=== PATIENT | female | born 1990 | race Caucasian/White ===

== ENCOUNTER 2017-11-17 12:19 | Inpatient (IN) | payer BC ==
[2017-11-17] MEDS ORDERED: Sodium Chloride 0.9% 10 ML Syringe FLUSH PRN (12:33)
[2017-11-17] MEDS ORDERED: Oxytocin/Lactated Ringers 10 UNIT/1,000 ML BAG IV SCH ×2 (12:45)
[2017-11-17] MEDS: Lactated Ringers 1,000 ML IV SCH ×3 (13:20→19:14)
--- NOTE | 2017-11-17 13:26 | PCM.LDHP ---
L&D History of Present Illness - General Date of Service: 11/17/17 Admit Problem/Dx: Patient Status Order with Admit Dx/Problem 11/17/17 12:34 Patient Status [ADT] Routine Admission Diagnosis/Problem Admission Diagnosis/Problem Normal labor Source of Information: Patient History Limitations: Reports: No Limitations - History of Present Illness Introduction:: Sue is a 27-year-old 3 para 1011 white female was admitted to labor and delivery for medical induction of labor for elevated blood pressures. At home blood pressures every from 1:30 to 150 over 90s for the last 3 days. On evaluation today they are in the same range. Patient's cervix is dilated to 2+ centimeters/80% effaced/soft/-3/midposition. She has 3+ or 4 reflexes in upper and lower extremities. Mild edema is noted. Nonstress test today is reactive. The continuation of , its inherent risks, benefits and the alternative of inducing labor to deliver the baby in a patient with progressive gestational hypertension, good dating and a very ripe cervix are discussed in detail with the patient. She appears to understand and wishes to proceed with induction of labor. LOGISTICS SUPPORT history 3 para 1011. Patient at term delivery on 09/23/2013 at 40 weeks gestational age after 18 hours of labor. She delivered a 7 lbs. 8 oz. male named Varun via spontaneous vaginal delivery here at [facility]. Second was an ectopic on 07/01/2016 at 7 weeks gestation. Patient's last menstrual start on 02/26/2017, was definite. Cycles are every 28 days, using no control time conception. She had menarche at age 12. course. Patient was seen early in the course of the and had an ultrasound done at 7-3/7 weeks on 04/17/2017 which correlated well with her last menstrual period dating for an PERI of 12/03/2017. 2 other ultrasounds on 07/18 and 08/13/2017 were supportive of the initial ultrasound. Her course was relatively unremarkable until the last week. She declined genetic testing. She is planning on breast-feeding. Her [place] depression screening scar on 07/14/2017 was 0 on a scale 30. She is group B strep negative. She has a history of genital herpes in the remote past and has been on acyclovir 400 mg by mouth 3 times a day for the last 3 weeks. [place] testing was normal on 08/12/2017. She had hypertension with her last which was consistent with a gestational hypertension picture versus a preeclampsia picture is desiring epidural in labor. She is up-to-date regarding her T dap vaccination with a shot given on 09/09/2017. She is rubella immune. Patient seen on a regular basis during the course of her . Her weight gain was from 149.2 up to 179 pounds for a 30 pound weight gain. Fundal height growth has been appropriate. Laboratory testing and shows her blood to be B+ with negative antibody screen. Hemoglobin at first visit was 14.3 g/dL and platelets are 218,000. She is rubella immune. RPR is nonreactive. Urine culture was negative. Hepatitis B surface antigen and HIV assays were both negative. On a recent chlamydia assays both negative. [place] test on 08/12/2017 showed low risk for trisomy 21, 18, 13. Second trimester labs showed a hemoglobin of 13.4 g /dL and platelets 196,000. Her 1 hour GTT was 86. Platelet count on 11/13/2017 was 191,000 and hemoglobin was 14.5. She is the strep negative Allergies: None Medications: 1. Acyclovir 400 mg 1 by mouth 3 times a day prophylactically for history of genital herpes 2. vitamins daily 3. Probiotic capsule daily 4. Full gases 1 mg daily. 5. Fish oil DAILY 6. Colace 100 mg by mouth daily to twice a day when necessary for constipation Past medical history: 1. Vaginal delivery 1 2. Asthma 3. Infertility 4. Ectopic 07/01/2016 Surgical history: 1. Right partial salpingectomy for ectopic 07/01/2016. 2. [place] teeth extraction Family history: Breast cancer in maternal grandmother. Pancreatic cancer paternal grandmother and mother. Nephew with heart defect and heterotaxy 4 siblings to full siblings 1 brother age 32 alive and well 1 sister age 34 alive and well. A half-brother age 13 alive and well. Half-brother age 14 alive and well. Mother age 52 alive and well. Father age 56 alive and well. Maternal grandmother and maternal grandfather alive and well with the exception of maternal grandfather with history of melanoma. Paternal grandmother secondary to pancreatic cancer. Paternal grandfather alive and well. Maternal grandmother also with a history of breast cancer. 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 She is a college graduate. is [employer]. She does not use any significant loss of alcohol, drugs or tobacco Review of systems:In general patient is doing well. She has had some headaches over the weekend and some minimal swelling otherwise is not reporting any symptoms. Skin: Negative Cardiovascular: No chest pain or exercise intolerance. Respiratory: No shortness of breath or infectious symptoms Breasts: Changes associated with : Patient plans to breast-feed GI: Negative : Changes associated with . Musculoskeletal: Minimal edema noted otherwise negative. Neurological: Negative Physical exam: Weight is 179 with pregravid weight 149. Her blood pressure is 142/92 been ranging as described above. Her height is 5 feet 6 inches and pregravid weight was 149.2. Pregravid body mass index was 24 In general patient is well-developed, well-nourished, pleasant female of stated age distress. Skin is warm and dry without lesions. HEENT, neck and back within normal limits. Cardiovascular exam shows regular rate and rhythm without murmurs. Lungs are clear with good breath sounds in all jett. Breast exam is deferred him first visit and found to be normal. Abdomen is protuberant with fundal height of 38 cm. Baby in vertex presentation by Pelon maneuvers. Cervix is 2+ meters dilated, 80% effaced, soft, -3 station, midposition. Extremities and neurological exam grossly within normal limits. Minimal edema is noted in bilateral lower extremities. Deep tendon reflexes are minimally increased at 3+ over 4 in upper and lower extremities. - Related Data Allergies/Adverse Reactions: Allergies Allergy/AdvReac Type Severity Reaction Status Date / Time No Known Allergies Allergy Verified 07/01/16 16:06 Home Medications: Home Meds Acetaminophen/oxyCODONE [Percocet 325-5 MG] 2 tab PO Q4H PRN #20 tablet [Rx] Folic Acid 1 mg PO DAILY 07/01/16 [History] Ibuprofen 600 mg PO Q4HR PRN #30 tablet 07/01/16 [Rx] L.acidoph,Paracasei, B.lactis [Probiotic] 1 each PO DAILY 08/01/16 [History] Vits #93/Iron Fum/FA [ Formula Tablet] 1 each PO DAILY [History] Social & Family History - Family History Oncologic: Reports: Breast Other Oncologic Family History: breast cancer -mat grandmother. melanoma-mother , mat grandfather - Tobacco Use Smoking Status *Q: Never Smoker Second Hand Smoke Exposure: No - Alcohol Use Days Per Week of Alcohol Use: 2 Number of Drinks Per Day: 1 Total Drinks Per Week: 2 - Recreational Drug Use Recreational Drug Use: No H&P Review of Systems - Review of Systems: Review Of Systems: See Below L&D Exam - Exam Exam: See Below - Vital Signs Weight: 82.1 kg - Patient Data Lab Results Last 24 hrs: Laboratory Results - last 24 hr 11/17/17 Range/Units 12:55 WBC 11.56 H (3.98-10.04) K/mm3 RBC 4.47 (3.98-5.22) M/mm3 Hgb 13.7 (11.2-15.7) gm/L Hct 39.3 (34.1-44.9) % MCV 87.9 (79.4-94.8) fl MCH 30.6 (25.6-32.2) pg MCHC 34.9 (32.2-35.5) g/dl RDW Std Deviation 40.1 (36.4-46.3) fL Plt Count 162 L (182-369) K/mm3 MPV 9.8 (9.4-12.3) fl Result Diagrams: 11/17/17 12:55 Problem List Initiated/Reviewed/Updated: Yes Orders Last 24hrs: Active Orders 24 hr Category Date Time Status Patient Status [ADT] Routine ADT 11/17/17 12:34 Active Activity as Tolerated [RC] PFP Care 11/17/17 12:33 Active Communication Order [RC] ASDIRECTED Care 11/17/17 12:33 Active Heart Tones [RC] ASDIRECTED Care 11/17/17 12:34 Active Notify Provider [RC] PFP Care 11/17/17 12:33 Active Notify Provider [RC] PRN Care 11/17/17 12:33 Active Peripheral IV Care [RC] . DIRECTED Care 11/17/17 12:34 Active Vital Signs [RC] PER UNIT ROUTINE Care 12/18/17 12:33 Active Clear Liquid Diet [DIET] Diet 11/17/17 Lunch Active Lactated Ringers [Ringers, Lactated] 1,000 ml Med 11/17/17 12:45 Active IV ASDIRECTED Oxytocin/Lactated Ringers [Pitocin in LR 10 Units/1,000 Med 11/17/17 12:45 Active ML] 10 unit in 1,000 ml IV .CONTINUOUS Oxytocin/Lactated Ringers [Pitocin in LR 10 Units/1,000 Med 11/17/17 12:45 Active ML] 10 unit in 1,000 ml IV TITRATE Sodium Chloride 0.9% [Saline Flush] Med 11/17/17 12:33 Active 10 ml FLUSH ASDIRECTED PRN Electronic Heart Tones Ext w TOCO [WOMSER] Oth 11/17/17 12:33 Ordered Routine Electronic Heart Tones Internal [WOMSER] Per Unit Oth 11/17/17 12:33 Ordered Routine Peripheral IV Insertion Adult [OM.PC] Routine Oth 11/17/17 12:33 Ordered Resuscitation Status Routine Resus Stat 11/17/17 12:33 Ordered Medication Orders Lactated Ringer's (Ringers, Lactated) 1,000 mls @ 100 mls/hr IV ASDIRECTED DIANA Oxytocin/Lactated Ringer's (Pitocin In Lr 10 Units/1,000 Ml) 10 unit in 1,000 mls @ 12 mls/hr IV TITRATE DIANA; 2 MUNITS/MIN PRN Reason: Protocol Oxytocin/Lactated Ringer's (Pitocin In Lr 10 Units/1,000 Ml) 10 unit in 1,000 mls @ 500 mls/hr IV .CONTINUOUS DIANA Sodium Chloride (Saline Flush) 10 ml FLUSH ASDIRECTED PRN PRN Reason: Keep Vein Open Assessment/Plan Comment:: Assessment: 1. 37-5/7 week intrauterine , progressive hypertension most probably consistent with progressive gestational hypertension. 2. Patient plans to breast-feed. 3. Rubella immune. 4. Patient is okay with epidural 5. T dap is up-to-date Plan: 1. Medical induction of labor with Pitocin/artificial rupture membranes. 2. Epidural when necessary 3. Monitor blood pressures closely in labor. 4. Encouraged nursing
--- NOTE | 2017-11-17 14:34 | PCM.PREANE ---
Preanesthetic Assessment - Procedure Proposed Procedure: ANUJ - Anesthesia/Transfusion/Family Hx Anesthesia History: Prior Anesthesia Without Reaction Family History of Anesthesia Reaction: No Transfusion History: No Prior Transfusion(s) Type of Transfusion Reactions: Reports: Unknown - Review of Systems General: No Symptoms Pulmonary: No Symptoms Cardiovascular: No Symptoms Gastrointestinal: No Symptoms Neurological: No Symptoms Other: Reports: None - Physical Assessment NPO Status Date: 11/17/17 NPO Status Time: 14:00 O2 Sat by Pulse Oximetry: 99 Respiratory Rate: 16 Vital Signs: Last Vital Signs Temp 37.3 C 11/17/17 12:33 Pulse 91 11/17/17 12:33 Resp 16 11/17/17 12:33 BP 132/90 11/17/17 12:33 Pulse Ox 99 11/17/17 12:33 Height: 1.65 m Weight: 82.1 kg ASA Class: 2 Mental Status: Alert & Oriented x3 Airway Class: Mallampati = 2 Dentition: Reports: Normal Dentition Thyro-Mental Finger Breadths: 3 Mouth Opening Finger Breadths: 3 ROM/Head Extension: Full Lungs: Clear to Auscultation, Normal Respiratory Effort Cardiovascular: Regular Rate, Regular Rhythm - Lab Values: Laboratory Last Values WBC 11.56 K/mm3 (3.98-10.04) H 11/17/17 12:55 RBC 4.47 M/mm3 (3.98-5.22) 11/17/17 12:55 Hgb 13.7 gm/L (11.2-15.7) 11/17/17 12:55 Hct 39.3 % (34.1-44.9) 11/17/17 12:55 MCV 87.9 fl (79.4-94.8) 11/17/17 12:55 MCH 30.6 pg (25.6-32.2) 11/17/17 12:55 MCHC 34.9 g/dl (32.2-35.5) 11/17/17 12:55 RDW Std Deviation 40.1 fL (36.4-46.3) 11/17/17 12:55 Plt Count 162 K/mm3 (182-369) L 11/17/17 12:55 MPV 9.8 fl (9.4-12.3) 11/17/17 12:55 - Allergies Allergies/Adverse Reactions: Allergies Allergy/AdvReac Type Severity Reaction Status Date / Time No Known Allergies Allergy Verified 07/01/16 16:06 - Blood Blood Available: No Product(s) Available: None - Anesthesia Plan Pre-Op Medication Ordered: None - Acknowledgements Anesthesia Type Planned: Epidural Pt an Appropriate Candidate for the Planned Anesthesia: Yes Alternatives and Risks of Anesthesia Discussed w Pt/Guardian: Yes Pt/Guardian Understands and Agrees with Anesthesia Plan: Yes PreAnesthesia Questionnaire Respiratory History: Reports: Other (See Below) Other Respiratory History: asthma as a child [employer] History: Reports: Ectopic Other OB/BYN History: laparoscopy with rt salpingectomy - Infectious Disease History Infectious Disease History: Reports: Chicken Pox, Herpes - Past Surgical History Head Surgeries/Procedures: Reports: None - SUBSTANCE USE Smoking Status *Q: Never Smoker Tobacco Use Within Last Twelve Months: No Second Hand Smoke Exposure: No Days Per Week of Alcohol Use: 2 Number of Drinks Per Day: 1 Total Drinks Per Week: 2 Recreational Drug Use History: No - HOME MEDS Home Medications: Home Meds Acetaminophen/oxyCODONE [Percocet 325-5 MG] 2 tab PO Q4H PRN #20 tablet [Rx] Folic Acid 1 mg PO DAILY 07/01/16 [History] Ibuprofen 600 mg PO Q4HR PRN #30 tablet 07/01/16 [Rx] L.acidoph,Paracasei, B.lactis [Probiotic] 1 each PO DAILY 07/01/16 [History] Vits #93/Iron Fum/FA [ Formula Tablet] 1 each PO DAILY [History] - CURRENT (IN HOUSE) MEDS Current Meds: Current Medications Lactated Ringer's (Ringers, Lactated) 1,000 mls @ 100 mls/hr IV ASDIRECTED DIANA Last Admin: 11/17/17 13:20 Dose: 100 mls/hr Oxytocin/Lactated Ringer's (Pitocin In Lr 10 Units/1,000 Ml) 10 unit in 1,000 mls @ 12 mls/hr IV TITRATE DIANA; 2 MUNITS/MIN PRN Reason: Protocol Last Titration: 11/17/17 14:13 Dose: 6 munits/min, 36 mls/hr Oxytocin/Lactated Ringer's (Pitocin In Lr 10 Units/1,000 Ml) 10 unit in 1,000 mls @ 500 mls/hr IV .CONTINUOUS DIANA Sodium Chloride (Saline Flush) 10 ml FLUSH ASDIRECTED PRN PRN Reason: Keep Vein Open
[2017-11-17] MEDS ORDERED: fentaNYL 100 MCG/2 ML SDV EPIDUR PRN (15:21)
[2017-11-17] MEDS ORDERED: ePHEDrine 50 MG/ML SDV IVPUSH PRN (15:21)
[2017-11-17] MEDS ORDERED: diphenhydrAMINE 50 MG/ML SDV IVPUSH PRN (15:21)
[2017-11-17] MEDS ORDERED: Ondansetron 4 MG/2 ML SDV IVPUSH PRN (15:21)
[2017-11-17] MEDS ORDERED: Bupivacaine/fentaNYL/NS 100 ML Bag EPIDUR SCH (15:30)
--- NOTE | 2017-11-17 21:31 | PCM.SN ---
- Free Text/Narrative Note: Delivery note: Sue is a 27-year-old 3 now para 2012 white female who was admitted midday on 11/17/2017 at 37-5/7 weeks gestational age with a diagnosis of gestational hypertension. Blood pressures over the last 5 days indicated a slight increase to a point where they were elevated. Blood pressures averaged in the 140-150/90-100 range. Degenerative reflexes were +3 over 4 bilaterally in upper and lower extremities. Preeclampsia labs however done last week were within normal limits and not repeated at this time. Decision was made to proceed with induction of labor as patient's cervix was relatively ripe. This was accomplished with Pitocin initially and then artificial rupture membranes. She made steady progress to complete cervical dilation by approximately 2030 hrs. on 11/17/2017. Patient pushed 2 contractions and delivered a viable, sagastume, 3570 g (7 pound 13.9 ounce) female infant with Apgars of 8 and 9, a length of 21.0 inches in a left occiput anterior position at 2106 hrs. on 2016. The baby's nose and mouth were bulb suctioned and a was placed on mom's abdomen. The cord was clamped 2 and was then cut by the father. Cord bloods obtained. The umbilical cord was noted to have 3 vessels. Perineum was found to be intact and no stitches were necessary. Pitocin was started IV in a continuous fashion increase uterine tone lessen the likelihood of uterine bleeding. The placenta delivered in [place] presentation, appeared intact and complete. It was discarded per patient desire. Patient plans to breast-feed. Estimated blood loss was 100 mL. Condition: Good
[2017-11-17] MEDS ORDERED: Methylergonovine 0.2 MG/1 ML Amp ONE (22:00)
[2017-11-17] MEDS ORDERED: Acetaminophen 325 MG Tab PO PRN (23:27)
[2017-11-17] MEDS ORDERED: Docusate Sodium 100 MG Cap PO PRN (23:27)
[2017-11-17] MEDS ORDERED: Benzocaine/Menthol 20%-0.5% Spray 56 GM Canister TOP PRN (23:27)
[2017-11-17] MEDS ORDERED: Lanolin 100% Cream 7 GM Tube TOP PRN (23:27)
[2017-11-17] MEDS ORDERED: Witch Hazel Medicated Pads 100/Jar TOP PRN (23:27)
[2017-11-18] MEDS: Ibuprofen 600 MG Tab PO PRN ×5 (00:52→23:50)
[2017-11-18] MEDS: Methylergonovine 0.2 MG/1 ML Amp IM ONE ×2 (02:18→22:33)
--- NOTE | 2017-11-18 16:38 | PCM48HPAN ---
Post Anesthesia Note - EVALUATION WITHIN 48HRS OF ANESTHETIC Vital Signs in Normal Range: Yes Patient Participated in Evaluation: Yes Respiratory Function Stable: Yes Airway Patent: Yes Cardiovascular Function Stable: Yes Hydration Status Stable: Yes Pain Control Satisfactory: Yes Nausea and Vomiting Control Satisfactory: Yes Mental Status Recovered: Yes
[2017-11-18] MEDS: Prenatal Multivitamin with Calcium/Folic Acid/Iron Tab PO SCH (22:33)
[2017-11-19] MEDS: Ibuprofen 600 MG Tab PO PRN (05:12)
[2017-11-19] MEDS ORDERED: FLU Vacc TS 2017-18 (65yr UP)/PF 180 MCG/0.5 ML Syringe IM ONE (10:24)
[2017-11-19] MEDS ORDERED: FLU Vacc QS 2017-18 (6mos UP)/PF 60 MCG/0.5 ML Syringe IM ONE (10:30)
[2017-11-19 13:12] VITALS: BP 128/80
[2017-11-19] MEDS: Prenatal Multivitamin with Calcium/Folic Acid/Iron Tab PO SCH (13:15)
== END 2017-11-19 10:30 | disposition home or self-care (01) | DRG 560 ==
LOC: JD.OB 12:19 → INTOOBSV 12:19 → JD.OB 21:06 → OBSVTOIN 21:06
PROVIDERS: ADMIT Obstetrics & Gynecology; ATTEND Obstetrics & Gynecology
PROC: 10E0XZZ Delivery of Products of Conception, External Approach (ICD-10-PCS; principal; 2017-11-17)
PROC: 3E0P3VZ Introduction of Hormone into Female Reproductive, Percutaneous Approach (ICD-10-PCS; 2017-11-17)
PROC: 10907ZC Drainage of Amniotic Fluid, Therapeutic from Products of Conception, Via Natural or Artificial Opening (ICD-10-PCS; 2017-11-17)
PROC: 00HU33Z Insertion of Infusion Device into Spinal Canal, Percutaneous Approach (ICD-10-PCS; 2017-11-17)
PROC: 3E0R3BZ Introduction of Anesthetic Agent into Spinal Canal, Percutaneous Approach (ICD-10-PCS; 2017-11-17)
DX: O13.4 Gestational [pregnancy-induced] hypertension without significant proteinuria, complicating childbirth (principal); Z3A.38 38 weeks gestation of pregnancy; Z37.0 Single live birth; Z34.93 Encounter for supervision of normal pregnancy, unspecified, third trimester
CPT/HCPCS: 01967; 36415; 51702; 59409; 81003; 85027; 90471; 90686; A9270-GY; J2210; J2405; J2590; J3010; J7120

== ENCOUNTER 2020-11-22 01:58 | Inpatient (IN) | payer OTHER ==
[2020-11-22] MEDS ORDERED: Sodium Chloride 0.9% 10 ML Syringe FLUSH PRN (14:02)
[2020-11-22] MEDS ORDERED: Nalbuphine 10 MG/1 ML Vial IVPUSH PRN (14:02)
[2020-11-22] MEDS ORDERED: Ondansetron 4 MG/2 ML SDV IVPUSH PRN (14:02)
[2020-11-22] MEDS ORDERED: Oxytocin/Lactated Ringers 10 UNIT/1,000 ML BAG IV SCH ×2 (14:15→14:45)
[2020-11-22] MEDS: Lactated Ringers 1,000 ML IV SCH ×3 (14:45→21:49)
--- NOTE | 2020-11-22 16:26 | PCM.LDHP ---
L&D History of Present Illness - General Date of Service: 11/22/20 Admit Problem/Dx: Patient Status Order with Admit Dx/Problem 11/22/20 14:02 Patient Status [ADT] Routine Admission Diagnosis/Problem Admission Diagnosis/Problem 11/22/20 16:14 Sue is a 29-year-old 4 para 2-0-1-2 white female admitted on the afternoon of 11/22/2020 at 36-2/7 weeks gestational age with an PERI of 12/18/2020 for elevated blood pressures in and feeling unwell. Source of Information: Patient History Limitations: Reports: No Limitations - History of Present Illness Introduction:: Sue is a 29-year-old 4 para 2-0-1-2 white female admitted on the afternoon of 11/22/2020 at 36-2/7 weeks gestational age with an PERI of 12/18/2020 for elevated blood pressures in and feeling unwell. She was seen in clinic and was found to have blood pressure 157/95. She reports her blood pressures at home have been running in the 160s systolic over 100-110 diastolic. She feels unwell and that she has had headaches. She denies any vision problems abdominal pain. She reports good activity. Patient was recently seen in clinic on 11/20/2020 at which time blood pressures were borderline elevated. She was feeling less than well at that time. Her preeclampsia laboratory testing was normal at that time. She is admitted at this time for an medical induction of labor. RN OFFICE history: 4 para 2-0-1-2. Patient has had 1 ectopic . She has had 2 vaginal deliveries. She had menarche at approximately age [age]. LMP 03/13/2020. Her due date of 12/18/2020 is based upon her last menstrual period and supported by multiple ultrasounds during the course of the . Her past obstetric history includes the followin. Male infant born 09/23/2015 at 40 weeks gestational age after 18 hours of labor7 pounds 8 [facility]NS[facility]. 2. Ectopic pregnancy7 weeks gestation on 07/01/2016-surgical treatment. 3. Female infant born 11/17/2017 at 37-5/7 weeks gestational age after 8 hours of laborNSVDepiduralSt. [facility] in [place]'s name is Isabella Zaidi. course: Patient was initially seen with this at 9 weeks and 3 days on 05/18/2020. She was seen on a regular basis throughout the . Patient's blood pressures became borderline and then elevated at approximately 33 to 34 weeks gestational age. She has been monitored with home blood pressures from that time forward. She has not been on any medications. Repeated laboratory testing has indicated normal liver function studies and no laboratory indication of preeclampsia. Her fundal height growth has been appropriate in . Her weight gain has been from 152.4 pounds to 179 pounds for a 26.6 pound increase. Patient has received her flu shot on 09/25/2020. Her Tdap was given on 10/03/2020. She is rubella immune. She had her hepatitis B immunization in 2000. Laboratory testing in shows blood to be be positive with a negative antibody screen. Her hemoglobin at first visit was 13.9 g/dL. Platelets are 225,000. She is rubella immune. RPR is nonreactive. Urine culture was negative. Hepatitis B surface antigen and HIV assays were both negative. Chlamydia and gonorrhea tests were both negative. Second trimester labs showed a hemoglobin of 13.4 g/dL and platelets at 192,000. Her 1 hour GTT was 94. RPR done on 09/22/2020 was negative. EPDS score on 08/08/2020 is 1/30. She has a history of genital herpes and has been on acyclovir 400 mg p.o. 3 times daily. She has had no outbreaks during the course of the . She plans to breast-feed. She would like an epidural in labor and delivery. She has been on a baby aspirin 81 mg p.o. daily since before 16 weeks gestation. Group B strep screen is negative. Allergies: None Medications: 1. Acyclovir 400 mg p.o. 3 times daily 2. Aspirin 81 mg daily 3. Probiotic caps daily 4. vitamins daily Past medical history: 1. Anxiety history. 2. History of melanoma. 3. History of asthma. 4. Ectopic with right partial salpingectomy 07/01/2016 5. Hypertension with first 2 pregnancies 6. Infertility resulting in Clomid therapy for her third . Past surgical history: 1. Right partial salpingectomy for ectopic 07/01/2016 Family history: 4 siblings2 full siblings, 1 brother alive and well. One sister age 34 alive and well. Half brother age 13 alive and well. Half brother age 14 alive and well. Mother age 52 alive and well. Father age 56 alive and well. Maternal grandmother and maternal grandfather alive and well with the exception that maternal grandfather has history of melanoma. Paternal grandmother secondary to pancreatic cancer. Paternal grandfather secondary to old age.. Maternal grandmother also has a history of breast cancer. There is no family history of bleeding or blood clotting disorders, anesthesia related issues or related problems. Social history: Patient is . is Mati Huynh. 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 They live in [place]. She does not use any significant also alcohol, drugs or tobacco. Review of systems: In general patient patient is generally feeling unwell. She has headaches. She has several nonspecific complaints related to her blood pressure. She does report good activity. Skin: Negative Lungs: No infectious symptoms or shortness of breath Cardiovascular: No chest pain or exercise intolerance Breasts: No lumps, changes in size, pain, dimpling, discharge or axillary or supraclavicular concerns. GI: Negative : Body habitus changes associated with . Musculoskeletal: Negative Neurological: Negative Physical exam: In general the patient is well-developed, well-nourished, pleasant female of stated age in mildmoderate distress. Clinic on the afternoon of admission blood pressure is 157/95. Weight was 179 with a pregravid weight of 152.4. Pregravid body mass index is 25 height is 5 feet 5. heart rate was 130 bpm. Skin is warm dry without lesions. HEENT, neck and back within normal limits. Lungs are clear with good breath sounds in all lung jett. Cardiovascular exam shows regular and rhythm without murmurs. Breast exam deferred having been done at first visit found to be normal. Patient does plan to breast-feed. Abdomen is gravid with fundal height of 36 cm. Baby in vertex presentation.. Genital digital exam shows cervix to be 2 cm, 50% effaced, soft, -3 station, mid position, cephalic presentation.. Extremities show no evidence of significant edema. Neurological exam shows deep tendon reflexes in bilateral lower extremities be 3+/4. DTRs are 2+/4 bilaterally in upper extremities. - Related Data Allergies/Adverse Reactions: Allergies Allergy/AdvReac Type Severity Reaction Status Date / Time No Known Allergies Allergy Verified 11/22/20 14:37 Home Medications: Home Meds Vit with Ca/FA/Iron [ Plus Iron] 1 each PO DAILY tablet 11/01 [Rx] Acyclovir 400 mg PO 11/22/20 [History] Aspirin 81 mg PO 11/22/20 [History] Docusate Sodium [Colace] 11/22/20 [History] L.acidoph,Paracasei, B.lactis [Probiotic] 1 each PO 11/22/20 [History] Past Medical History Cardiovascular History: Reports: Other (See Below) Other Cardiovascular History: gestational hypertension Respiratory History: Reports: Other (See Below) Other Respiratory History: asthma as a child 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 abnormal pap. - Infectious Disease History Infectious Disease History: Reports: Chicken Pox, Herpes - Past Surgical History HEENT Surgical History: Reports: Oral Surgery Social & Family History - Family History Cardiac: Reports: Other (See Below) Other Cardiac Family History: nephew wit heterotaxy Respiratory: Reports: Sleep Apnea Other Respiratory Family Hisory: father Oncologic: Reports: Breast Other Oncologic Family History: breast cancer -mat grandmother. melanoma- mother, mat grandfather - Tobacco Use Tobacco Use Status *Q: Never Tobacco User - Recreational Drug Use Recreational Drug Use: No H&P Review of Systems - Review of Systems: Review Of Systems: See Below L&D Exam - Exam Exam: See Below - Vital Signs Vital Signs: Last Vital Signs Temp 36.7 C 11/22/20 14:02 Pulse 85 11/22/20 14:02 Resp 16 11/22/20 14:02 BP 136/100 H 11/22/20 14:02 Pulse Ox Weight: 82.508 kg - Patient Data Lab Results Last 24 hrs: Laboratory Results - last 24 hr 11/22/20 11/22/20 11/22/20 Range/Units 14:10 14:10 14:15 WBC (3.98-10.04) K/mm3 RBC (3.98-5.22) M/mm3 Hgb (11.2-15.7) gm/dl Hct (34.1-44.9) % MCV (79.4-94.8) fl MCH (25.6-32.2) pg MCHC (32.2-35.5) g/dl RDW Std Deviation (36.4-46.3) fL Plt Count (182-369) K/mm3 MPV (9.4-12.3) fl Neut % (Auto) (34.0-71.1) % Lymph % (Auto) (19.3-51.7) % [place] % (Auto) (4.7-12.5) % Eos % (Auto) (0.7-5.8) Baso % (Auto) (0.1-1.2) % Neut # (Auto) (1.56-6.13) K/mm3 Lymph # (Auto) (1.18-3.74) K/mm3 [place] # (Auto) (0.24-0.36) K/mm3 Eos # (Auto) (0.04-0.36) K/mm3 Baso # (Auto) (0.01-0.08) K/mm3 BUN (7-18) mg/dL Creatinine (0.55-1.02) mg/dL Est Cr Clr Drug Dosing mL/min Estimated GFR (MDRD) (>60) mL/min Uric Acid (2.6-6.0) mg/dL AST (15-37) U/L ALT (14-59) U/L Lactate Dehydrogenase (81-234) U/L Urine Color Yellow (Yellow) Urine Appearance Clear (Clear) Urine pH 6.0 (5.0-8.0) Ur Specific [place] 1.020 (1.005-1.030) Urine Protein Negative (Negative) Urine Glucose (UA) Negative (Negative) Urine Ketones Negative (Negative) Urine Occult Blood Negative (Negative) Urine Nitrite Negative (Negative) Urine Bilirubin Negative (Negative) Urine Urobilinogen 0.2 (0.2-1.0) Ur Leukocyte Esterase Trace H (Negative) Urine RBC 0-5 (0-5) /hpf Urine WBC 5-10 H (0-5) /hpf Ur Squamous Epith Cells 0-5 (0-5) /hpf Urine Bacteria Few (FEW) /hpf Urine Mucus Few (FEW) /hpf Ur Random Creatinine 61.6 (30.0-125.0) mg/dL U Random Total Protein 7.9 (0.0-11.8) mg/dL Protein/Creatinin Ratio 128.2 (0-149) mg/g SARS-CoV-2 RNA (TONY) Negative (NEGATIVE) 11/22/20 11/22/20 Range/Units 14:27 14:27 WBC 11.02 H (3.98-10.04) K/mm3 RBC 4.84 (3.98-5.22) M/mm3 Hgb 14.7 (11.2-15.7) gm/dl Hct 42.6 (34.1-44.9) % MCV 88.0 (79.4-94.8) fl MCH 30.4 (25.6-32.2) pg MCHC 34.5 (32.2-35.5) g/dl RDW Std Deviation 39.8 (36.4-46.3) fL Plt Count 192 (182-369) K/mm3 MPV 10.6 (9.4-12.3) fl Neut % (Auto) 69.8 (34.0-71.1) % Lymph % (Auto) 22.9 (19.3-51.7) % [place] % (Auto) 6.1 (4.7-12.5) % Eos % (Auto) 0.8 (0.7-5.8) Baso % (Auto) 0.2 (0.1-1.2) % Neut # (Auto) 7.70 H (1.56-6.13) K/mm3 Lymph # (Auto) 2.52 (1.18-3.74) K/mm3 [place] # (Auto) 0.67 H (0.24-0.36) K/mm3 Eos # (Auto) 0.09 (0.04-0.36) K/mm3 Baso # (Auto) 0.02 (0.01-0.08) K/mm3 BUN 9 (7-18) mg/dL Creatinine 0.7 (0.55-1.02) mg/dL Est Cr Clr Drug Dosing 103.82 mL/min Estimated GFR (MDRD) > 60 (>60) mL/min Uric Acid 3.8 (2.6-6.0) mg/dL AST 20 (15-37) U/L ALT 18 (14-59) U/L Lactate Dehydrogenase 190 (81-234) U/L Urine Color (Yellow) Urine Appearance (Clear) Urine pH (5.0-8.0) Ur Specific [place] (1.005-1.030) Urine Protein (Negative) Urine Glucose (UA) (Negative) Urine Ketones (Negative) Urine Occult Blood (Negative) Urine Nitrite (Negative) Urine Bilirubin (Negative) Urine Urobilinogen (0.2-1.0) Ur Leukocyte Esterase (Negative) Urine RBC (0-5) /hpf Urine WBC (0-5) /hpf Ur Squamous Epith Cells (0-5) /hpf Urine Bacteria (FEW) /hpf Urine Mucus (FEW) /hpf Ur Random Creatinine (30.0-125.0) mg/dL U Random Total Protein (0.0-11.8) mg/dL Protein/Creatinin Ratio (0-149) mg/g SARS-CoV-2 RNA (TONY) (NEGATIVE) Result Diagrams: 11/22/20 14:27 11/22/20 14:27 Problem List Initiated/Reviewed/Updated: Yes Orders Last 24hrs: Active Orders 24 hr Category Date Time Status Patient Status [ADT] Routine ADT 11/22/20 14:02 Active Activity as Tolerated [RC] PFP Care 11/22/20 14:02 Active Communication Order [RC] ASDIRECTED Care 11/22/20 14:02 Active Heart Tones [RC] ASDIRECTED Care 11/22/20 14:02 Active Non Stress Test [RC] PER UNIT ROUTINE Care 11/22/20 14:02 Active Notify Provider [RC] PFP Care 11/22/20 14:02 Active Notify Provider [RC] PRN Care 11/22/20 14:02 Active Peripheral IV Care [RC] . DIRECTED Care 11/22/20 14:02 Active Vital Signs [RC] PER UNIT ROUTINE Care 11/22/20 14:02 Active Regular Diet [DIET] Diet 11/22/20 Dinner Active BLOOD BANK HOLD SPECIMEN [BBK] Stat Lab 11/22/20 14:27 Received RAPID PLASMA REAGIN,RPR [CHEM] Routine Lab 11/22/20 14:27 Received Lactated Ringers [Ringers, Lactated] 1,000 ml Med 11/22/20 14:15 Active IV ASDIRECTED Nalbuphine [Nubain] Med 11/22/20 14:02 Active 10 mg IVPUSH Q2H PRN Ondansetron [Zofran] Med 11/22/20 14:02 Active 4 mg IVPUSH Q4H PRN Oxytocin/Lactated Ringers [Pitocin in LR 10 Units/1,000 Med 11/22/20 14:15 Active ML] 10 unit in 1,000 ml IV .CONTINUOUS Oxytocin/Lactated Ringers [Pitocin in LR 10 Units/1,000 Med 11/22/20 14:45 Active ML] 10 unit in 1,000 ml IV TITRATE Sodium Chloride 0.9% [Saline Flush] Med 11/22/20 14:02 Active 10 ml FLUSH ASDIRECTED PRN Electronic Heart Tones Ext w TOCO [WOMSER] Oth 11/22/20 14:02 Ordered Routine Electronic Heart Tones Internal [WOMSER] Per Unit Oth 11/22/20 14:02 Ordered Routine PIH Panel [OM.PC] Stat Ot 11/22/20 14:02 Ordered Peripheral IV Insertion Adult [OM.PC] Routine Oth 11/22/20 14:02 Ordered Resuscitation Status Routine Resus Stat 11/22/20 14:02 Ordered Medication Orders Oxytocin/Lactated Ringer's (Pitocin In Lr 10 Units/1,000 Ml) 10 unit in 1,000 mls @ 500 mls/hr IV .CONTINUOUS DIANA Lactated Ringer's (Ringers, Lactated) 1,000 mls @ 100 mls/hr IV ASDIRECTED DIANA Last Admin: 11/22/20 14:45 Dose: 100 mls/hr Documented by: EUSEBIO Oxytocin/Lactated Ringer's (Pitocin In Lr 10 Units/1,000 Ml) 10 unit in 1,000 mls @ 12 mls/hr IV TITRATE DIANA; Protocol Last Titration: 11/22/20 15:35 Dose: 4 munits/min, 24 mls/hr Documented by: Admin: 11/22/20 14:46 Dose: 2 munits/min, 12 mls/hr Documented by: EUSEBIO Nalbuphine HCl (Nubain) 10 mg IVPUSH Q2H PRN PRN Reason: Pain Ondansetron HCl (Zofran) 4 mg IVPUSH Q4H PRN PRN Reason: Nausea/Vomiting Sodium Chloride (Saline Flush) 10 ml FLUSH ASDIRECTED PRN PRN Reason: Keep Vein Open Assessment/Plan Comment:: 1. Sue is a 29-year-old 4 para 2-0-1-2 white female admitted on the afternoon of 11/22/2020 at 36-2/7 weeks gestational age with an PERI of 12/18/2020 for elevated blood pressures in and feeling unwell. 2. History of related hypertension in first 2 pregnancies 3. Patient desires epidural in labor 4. Patient plans to breast-feed. 5. RPR is nonreactive, rubella titer shows immunity, patient has received her flu shot and her Tdap immunization Plan: 1. Admit for medical induction of labor for diagnosis of progressive hypertension in . Will proceed with Pitocin induction with AROM when possible. The process, induction discussed in detail with patient. She appears understand and wishes to proceed 2. Preeclampsia labs upon admission 3. Near continuous monitoring of heart tones 4. Routine labor care. Will monitor and initiate magnesium sulfate therapy if indicated. Also will treat with antihypertensives if indicated.
[2020-11-22] MEDS ORDERED: diphenhydrAMINE 50 MG/ML SDV IVPUSH PRN (17:15)
[2020-11-22] MEDS ORDERED: Bupivacaine/fentaNYL/NS 100 ML Bag EPIDUR PRN (17:15)
[2020-11-22] MEDS ORDERED: ePHEDrine 50 MG/ML SDV IVPUSH PRN (17:15)
[2020-11-22] MEDS ORDERED: fentaNYL 100 MCG/2 ML SDV EPIDUR PRN (17:15)
[2020-11-22] MEDS ORDERED: Acetaminophen 325 MG Tab PO PRN (17:18)
--- NOTE | 2020-11-22 21:53 | PCM.PREANE ---
Preanesthetic Assessment - Procedure Proposed Procedure: epidural - Anesthesia/Transfusion/Family Hx Anesthesia History: Prior Anesthesia Without Reaction Family History of Anesthesia Reaction: No Transfusion History: No Prior Transfusion(s) Type of Transfusion Reactions: Reports: Unknown - Review of Systems General: Fatigue Pulmonary: No Symptoms Cardiovascular: No Symptoms Gastrointestinal: Abdominal Pain (labor) Neurological: No Symptoms Other: Reports: None - Physical Assessment Vital Signs: Last Vital Signs Temp 36.7 C 11/22/20 14:02 Pulse 85 11/22/20 14:02 Resp 16 11/22/20 14:02 BP 136/100 H 11/22/20 14:02 Pulse Ox Height: 1.65 m Weight: 82.508 kg ASA Class: 2 Mental Status: Alert & Oriented x3 Airway Class: Mallampati = 1 Dentition: Reports: Normal Dentition Thyro-Mental Finger Breadths: 3 Mouth Opening Finger Breadths: 3 ROM/Head Extension: Full Lungs: Clear to Auscultation, Normal Respiratory Effort Cardiovascular: Regular Rate, Regular Rhythm - Lab Values: Laboratory Last Values WBC 11.02 K/mm3 (3.98-10.04) H 11/22/20 14:27 RBC 4.84 M/mm3 (3.98-5.22) 11/22/20 14:27 Hgb 14.7 gm/dl (11.2-15.7) 11/22/20 14:27 Hct 42.6 % (34.1-44.9) 11/22/20 14:27 MCV 88.0 fl (79.4-94.8) 11/22/20 14:27 MCH 30.4 pg (25.6-32.2) 11/22/20 14:27 MCHC 34.5 g/dl (32.2-35.5) 11/22/20 14:27 RDW Std Deviation 39.8 fL (36.4-46.3) 11/22/20 14:27 Plt Count 192 K/mm3 (182-369) 11/22/20 14:27 MPV 10.6 fl (9.4-12.3) 11/22/20 14:27 Neut % (Auto) 69.8 % (34.0-71.1) 11/22/20 14:27 Lymph % (Auto) 22.9 % (19.3-51.7) 11/22/20 14:27 [place] % (Auto) 6.1 % (4.7-12.5) 11/22/20 14:27 Eos % (Auto) 0.8 (0.7-5.8) 11/22/20 14:27 Baso % (Auto) 0.2 % (0.1-1.2) 11/22/20 14:27 Neut # (Auto) 7.70 K/mm3 (1.56-6.13) H 11/22/20 14:27 Lymph # (Auto) 2.52 K/mm3 (1.18-3.74) 11/22/20 14:27 [place] # (Auto) 0.67 K/mm3 (0.24-0.36) H 11/22/20 14:27 Eos # (Auto) 0.09 K/mm3 (0.04-0.36) 11/22/20 14: Baso # (Auto) 0.02 K/mm3 (0.01-0.08) 11/22/20 14: BUN 9 mg/dL (7-18) 11/22/20 14:27 Creatinine 0.7 mg/dL (0.55-1.02) 11/22/20 14:27 Est Cr Clr Drug Dosing 103.82 mL/min 11/22/20 14:27 Estimated GFR (MDRD) > 60 mL/min (>60) 11/22/20 14:27 Uric Acid 3.8 mg/dL (2.6-6.0) 11/22/20 14:27 AST 20 U/L (15-37) 11/22/20 14:27 ALT 18 U/L (14-59) 11/22/20 14:27 Lactate Dehydrogenase 190 U/L (81-234) 11/22/20 14:27 Urine Color Yellow (Yellow) 11/22/20 14:10 Urine Appearance Clear (Clear) 11/22/20 14:10 Urine pH 6.0 (5.0-8.0) 11/22/20 14:10 Ur Specific [place] 1.020 (1.005-1.030) 11/22/20 14:10 Urine Protein Negative (Negative) 11/22/20 14:10 Urine Glucose (UA) Negative (Negative) 11/22/20 14:10 Urine Ketones Negative (Negative) 11/22/20 14:10 Urine Occult Blood Negative (Negative) 11/22/20 14:10 Urine Nitrite Negative (Negative) 11/22/20 14:10 Urine Bilirubin Negative (Negative) 11/22/20 14:10 Urine Urobilinogen 0.2 (0.2-1.0) 11/22/20 14:10 Ur Leukocyte Esterase Trace (Negative) H 11/22/20 14:10 Urine RBC 0-5 /hpf (0-5) 11/22/20 14:10 Urine WBC 5-10 /hpf (0-5) H 11/22/20 14:10 Ur Squamous Epith Cells 0-5 /hpf (0-5) 11/22/20 14:10 Urine Bacteria Few /hpf (FEW) 11/22/20 14:10 Urine Mucus Few /hpf (FEW) 11/22/20 14:10 Ur Random Creatinine 61.6 mg/dL (30.0-125.0) 11/22/20 14:10 U Random Total Protein 7.9 mg/dL (0.0-11.8) 11/22/20 14:10 Protein/Creatinin Ratio 128.2 mg/g (0-149) 11/22/20 14:10 SARS-CoV-2 RNA (TONY) Negative (NEGATIVE) 11/22/20 14:15 - Allergies Allergies/Adverse Reactions: Allergies Allergy/AdvReac Type Severity Reaction Status Date / Time No Known Allergies Allergy Verified 11/22/20 14:37 - Anesthesia Plan Pre-Op Medication Ordered: None - Acknowledgements Anesthesia Type Planned: Epidural Pt an Appropriate Candidate for the Planned Anesthesia: Yes Alternatives and Risks of Anesthesia Discussed w Pt/Guardian: Yes Pt/Guardian Understands and Agrees with Anesthesia Plan: Yes PreAnesthesia Questionnaire Cardiovascular History: Reports: Other (See Below) Other Cardiovascular History: gestational hypertension Respiratory History: Reports: Other (See Below) Other Respiratory History: asthma as a child Gastrointestinal History: Reports: GERD 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 abnormal pap. - Infectious Disease History Infectious Disease History: Reports: Chicken Pox, Herpes - Past Surgical History HEENT Surgical History: Reports: Oral Surgery - SUBSTANCE USE Tobacco Use Status *Q: Never Tobacco User Recreational Drug Use History: No - HOME MEDS Home Medications: Home Meds Vit with Ca/FA/Iron [ Plus Iron] 1 each PO DAILY tablet 11/19/17 [Rx] Acyclovir 400 mg PO 11/22/20 [History] Aspirin 81 mg PO 11/22/20 [History] Docusate Sodium [Colace] 11/22/20 [History] L.acidoph,Paracasei, B.lactis [Probiotic] 1 each PO 11/22/20 [History] - CURRENT (IN HOUSE) MEDS Current Meds: Current Medications Acetaminophen (Tylenol) 650 mg PO Q6H PRN PRN Reason: headache Last Admin: 11/22/20 17:42 Dose: 650 mg Documented by: Diphenhydramine HCl (Benadryl) 25 mg IVPUSH Q6H PRN PRN Reason: pruritis Ephedrine Sulfate (Ephedrine Sulfate) 5 mg IVPUSH ASDIRECTED PRN PRN Reason: Hypotension Fentanyl (Sublimaze) 100 mcg EPIDUR Q3H PRN PRN Reason: Pain Last Admin: 11/22/20 21:11 Dose: 100 mcg Documented by: Fentanyl/Bupivacaine HCl (Fentanyl/Bupivacaine/Ns 2 Mcg-0.125% 100 Ml) 100 ml EPIDUR ASDIRECTED PRN PRN Reason: Pain Last Admin: 11/22/20 21:12 Dose: 100 ml Documented by: Oxytocin/Lactated Ringer's (Pitocin In Lr 10 Units/1,000 Ml) 10 unit in 1,000 mls @ 500 mls/hr IV .CONTINUOUS DIANA Lactated Ringer's (Ringers, Lactated) 1,000 mls @ 100 mls/hr IV ASDIRECTED DIANA Last Admin: 11/22/20 21:12 Dose: 100 mls/hr Documented by: Oxytocin/Lactated Ringer's (Pitocin In Lr 10 Units/1,000 Ml) 10 unit in 1,000 mls @ 12 mls/hr IV TITRATE DIANA; Protocol Last Titration: 11/22/20 20:00 Dose: 12 munits/min, 72 mls/hr Documented by: Nalbuphine HCl (Nubain) 10 mg IVPUSH Q2H PRN PRN Reason: Pain Ondansetron HCl (Zofran) 4 mg IVPUSH Q4H PRN PRN Reason: Nausea/Vomiting Sodium Chloride (Saline Flush) 10 ml FLUSH ASDIRECTED PRN PRN Reason: Keep Vein Open
[2020-11-23] MEDS ORDERED: ePHEDrine Sulfate/0.9% NaCl/Pf 25 MG/5 ML SYRINGE IV ONE
[2020-11-23] MEDS ORDERED: Bupivacaine 0.25% 10 ML SDV ONE
[2020-11-23] MEDS ORDERED: Magnesium Sulfate/Water 4 GM/100 ML BAG IV ONE (02:24)
[2020-11-23] MEDS ORDERED: Magnesium Sulfate/Water 2 GM/50 ML BAG IV ONE (02:27)
[2020-11-23] MEDS ORDERED: Magnesium Sulfate/Water 40 GM/1,000 ML BAG IV SCH (02:30)
[2020-11-23] MEDS ORDERED: Docusate Sodium 100 MG Cap PO PRN (02:45)
[2020-11-23] MEDS ORDERED: Benzocaine/Menthol 20%-0.5% Spray 56 GM Canister TOP PRN (02:45)
[2020-11-23] MEDS ORDERED: Witch Hazel Medicated Pads 40/Jar TOP PRN (02:45)
[2020-11-23] MEDS ORDERED: Acetaminophen 325 MG Tab PO PRN (02:45)
[2020-11-23] MEDS ORDERED: Misoprostol 200 MCG Tab ONE (08:39)
[2020-11-23] MEDS ORDERED: Prenatal Multivitamin with Calcium/Folic Acid/Iron Tab PO SCH (09:00)
--- NOTE | 2020-11-23 09:20 | PCM48HPAN ---
Post Anesthesia Note - EVALUATION WITHIN 48HRS OF ANESTHETIC Vital Signs in Normal Range: Yes Patient Participated in Evaluation: Yes Respiratory Function Stable: Yes Airway Patent: Yes Cardiovascular Function Stable: Yes Hydration Status Stable: Yes Pain Control Satisfactory: Yes Nausea and Vomiting Control Satisfactory: Yes Mental Status Recovered: Yes Vital Signs: Last Vital Signs Temp 36.7 C 11/23/20 08:44 Pulse 91 11/23/20 08:44 Resp 16 11/22/20 14:02 BP 132/91 H 11/23/20 08:44 Pulse Ox 99 11/23/20 08:44
--- NOTE | 2020-11-23 10:47 | PCM.SN.2 ---
- Free Text/Narrative Note: note: Patient is doing well in the period. Minimal lochia, voiding well, ambulated without problems. Nursing without concerns. Previously reported headache has resolved with Tylenol. She is generally feeling well. Her baby is having some respiratory issues requiring CPAP. Plan is to transfer the baby to NICU in [place]. Patient has appropriate concern and anxiety over this. She is presently on magnesium sulfate 2 g/h. It was 600 hours a magnesium level was in therapeutic range at 4.5. Patient is afebrile, blood pressure has been in the 134-145 range systolically and 84 to mid 90s range diastolically. She has not had any antihypertensive therapy. Abdomen is flat, soft, uterus is below the umbilicus and is firm and nontender. Legs are nontender. Patient still has lower extremity hyperreflexia even on magnesium sulfate. Assessment: 1. 36-3/7-week pregnancypreeclampsia with severe featuresdeliveredon magnesium sulfate with continued hyperreflexia. Magnesium blood levels are therapeutic. 2. Patient has had mild to moderate increase in her vaginal flow. She has a history of bleeding with her previous . She is on Cytotec 400 mcg every 6 hours for this. Other facets of her recovery going well. Plan: 1. Continue magnesium sulfate at maintenance dose of 2 g an hour for a total of at least 24 hours and then will reassess. Monitor blood pressures and reflexes during the course of that time. Will obtain magnesium levels every 6 hours and attempt to maintain between 4 and 6. 2. Intake and output foot while on mag sulfate 3. Frequent vital signs including DTRs 4. Continue with Cytotec at the present time. Will monitor vaginal bleeding and discontinue when patient appears stable 5. Routine care. Patient be discharged home within the next 24-48 hours, but only once stable.
[2020-11-23] MEDS: Ibuprofen 600 MG Tab PO PRN ×2 (11:17→20:11)
[2020-11-24] MEDS: Ibuprofen 600 MG Tab PO PRN (02:53)
--- NOTE | 2020-11-24 08:00 | PCM.DCSUM1 ---
Discharge Summary - Discharge Data Discharge Date: 11/24/20 Discharge Disposition: Home, Self-Care 01 Condition: Good - Referral to Home Health Primary Care Physician: PCP None - Patient Summary/Data Hospital Course: note: Patient is doing well in the period. Minimal lochia, voiding well, ambulated without problems. Nursing without concerns. Previously reported headache has resolved with Tylenol. She is generally feeling well. Her baby is having some respiratory issues requiring CPAP. Plan is to transfer the baby to NICU in [place]. Patient has appropriate concern and anxiety over this. She is presently on magnesium sulfate 2 g/h. It was 600 hours a magnesium level was in therapeutic range at 4.5. Patient is afebrile, blood pressure has been in the 134-145 range systolically and 84 to mid 90s range diastolically. She has not had any antihypertensive therapy. Abdomen is flat, soft, uterus is below the umbilicus and is firm and nontender. Legs are nontender. Patient still has lower extremity hyperreflexia even on magnesium sulfate. - Patient Instructions Diet: Usual Diet as Tolerated Activity: No Strenuous Activities Driving: May Drive Today Showering/Bathing: May Shower Notify Provider of: Fever, Increased Pain, Swelling and Redness, Drainage, Nausea and/or Vomiting - Discharge Plan *PRESCRIPTION DRUG MONITORING PROGRAM REVIEWED*: No *COPY OF PRESCRIPTION DRUG MONITORING REPORT IN PATIENT CHRISTINA: No Home Medications: Home Meds Vit with Ca/FA/Iron [ Plus Iron] 1 each PO DAILY tablet 11/19/17 [Rx] Acyclovir 400 mg PO 11/22/20 [History] Aspirin 81 mg PO 11/22/20 [History] Docusate Sodium [Colace] 11/22/20 [History] L.acidoph,Paracasei, B.lactis [Probiotic] 1 each PO 11/22/20 [History] Referrals: Gian Triana MD [Physician] - (2 week) - Discharge Summary/Plan Comment DC Time >30 min.: No - Patient Data Vitals - Most Recent: Last Vital Signs Temp 36.9 C 11/24/20 06:28 Pulse 65 11/24/20 06:28 Resp 14 11/24/20 06:28 BP 123/79 11/24/20 06:28 Pulse Ox 96 11/24/20 06:28 Weight - Most Recent: 82.508 kg I&O - Last 24 hours: Intake & Output 11/23/20 11/24/20 11/24/20 22:59 06:59 14:59 Output Total 2425 1000 Balance -2425 -1000 Lab Results - Last 24 hrs: Laboratory Results - last 24 hr 11/23/20 11/23/20 11/24/20 Range/Units 12:35 17:52 00:20 Magnesium 5.1 H 5.3 H 5.5 H (1.8-2.4) mg/dl 11/24/20 Range/Units 05:17 Magnesium 3.1 H (1.8-2.4) mg/dl Med Orders - Current: Current Medications Acetaminophen (Tylenol) 650 mg PO Q4H PRN PRN Reason: mild pain or fever Benzocaine/Menthol (Dermoplast Pain Relief [place]) 0 gm TOP ASDIRECTED PRN PRN Reason: Perineal Comfort Measure Docusate Sodium (Colace) 100 mg PO BID PRN PRN Reason: Constipation Ibuprofen (Motrin) 600 mg PO Q4H PRN PRN Reason: Mild pain or fever Last Admin: 11/24/20 02:53 Dose: 600 mg Documented by: Prenat Multivit/[place] [facility] [place]/Iron/Folic Ac ( Plus Iron) 1 each PO DAILY DIANA Last Admin: 11/23/20 15:19 Dose: Not Given Documented by: Yasmany Rosen ([facility]) 1 pad TOP ASDIRECTED PRN PRN Reason: Perineal Comfort Measure Discontinued Medications Acetaminophen (Tylenol) 650 mg PO Q6H PRN PRN Reason: headache Last Admin: 11/22/20 17:42 Dose: 650 mg Documented by: Bupivacaine HCl (Sensorcaine-Mpf 0.25%) 10 ml .ROUTE .STK-MED ONE Stop: 11/23/20 00:01 Diphenhydramine HCl (Benadryl) 25 mg IVPUSH Q6H PRN PRN Reason: pruritis Ephedrine Sulfate (Ephedrine Sulfate) 5 mg IVPUSH ASDIRECTED PRN PRN Reason: Hypotension Ephedrine Sulfate (Ephedrine 25 Mg/5 Ml Syringe) 25 mg IV .STK-MED ONE Stop: 11/23/20 00:01 Fentanyl (Sublimaze) 100 mcg EPIDUR Q3H PRN PRN Reason: Pain Last Admin: 11/22/20 21:11 Dose: 100 mcg Documented by: Fentanyl/Bupivacaine HCl (Fentanyl/Bupivacaine/Ns 2 Mcg-0.125% 100 Ml) 100 ml EPIDUR ASDIRECTED PRN PRN Reason: Pain Last Admin: 11/22/20 21:12 Dose: 100 ml Documented by: Oxytocin/Lactated Ringer's (Pitocin In Lr 10 Units/1,000 Ml) 10 unit in 1,000 mls @ 500 mls/hr IV .CONTINUOUS DIANA Last Admin: 11/23/20 02:30 Dose: 500 mls/hr Documented by: Lactated Ringer's (Ringers, Lactated) 1,000 mls @ 100 mls/hr IV ASDIRECTED DIANA Last Admin: 11/22/20 21:49 Dose: 100 mls/hr Documented by: Oxytocin/Lactated Ringer's (Pitocin In Lr 10 Units/1,000 Ml) 10 unit in 1,000 mls @ 12 mls/hr IV TITRATE DIANA; Protocol Last Titration: 11/23/20 00:30 Dose: Infused Documented by: Magnesium Sulfate (Magnesium Sulfate In Water Premix) 4 gm in 100 mls @ 400 mls/hr IV ONETIME ONE Stop: 11/23/20 02:38 Last Admin: 11/23/20 03:28 Dose: 400 mls/hr Documented by: Magnesium Sulfate (Magnesium Sulfate In Water Premix) 40 gm in 1,000 mls @ 50 mls/hr IV ASDIRECTED DIANA Last Admin: 11/23/20 03:53 Dose: 50 mls/hr Documented by: Magnesium Sulfate (Magnesium Sulfate In Water Premix) 2 gm in 50 mls @ 300 mls/hr IV ONETIME ONE Stop: 11/23/20 02:36 Last Admin: 11/23/20 03:04 Dose: 300 mls/hr Documented by: Misoprostol (Cytotec) Confirm Administered Dose 400 mcg .ROUTE .STK-MED ONE Stop: 11/23/20 08:40 Last Admin: 11/23/20 08:39 Dose: 400 mcg Documented by: Nalbuphine HCl (Nubain) 10 mg IVPUSH Q2H PRN PRN Reason: Pain Ondansetron HCl (Zofran) 4 mg IVPUSH Q4H PRN PRN Reason: Nausea/Vomiting Sodium Chloride (Saline Flush) 10 ml FLUSH ASDIRECTED PRN PRN Reason: Keep Vein Open
[2020-11-24 08:27] VITALS: BP 119/76; PULSE 60
--- NOTE | 2020-11-28 06:23 | PCM.SN.2 ---
- Free Text/Narrative Note: Delivery note: Date 11/23/2020 Sue is a 29-year-old 4 now para 2113 white female admitted on the afternoon of 11/22/2020 at 36-2/7 weeks gestational age with an PERI of 12/18/2020 for elevated blood pressures in and feeling unwell. She was seen in clinic and was found to have blood pressure 157/95. She reported her blood pressures at home had been running in the 160s systolic over 100-110 diastolic. She felt unwell and that she had headaches. Working diagnosis was 36 2/7 week with preeclampsia with severe features. She underwent induction of labor with Pitocin and AROM. Amniotic fluid was clear. She underwent an epidural for labor analgesia. She rapidly dilated to complete cervical dilation. At 0158 hrs. on 11/23/2020 she delivered a viable, sagastume, male named Adam Long in a direct occiput anterior position. Delivery was accomplished with gentle downward and then upward traction facilitating delivery of the anterior and posterior shoulders. No problems were encountered. The baby was placed on mom's abdomen. The baby was dried, nose and mouth were bulb suction. Pitocin was increased to 500 cc an hour to facilitate increase in uterine tone and decrease likelihood of bleeding. Patient had a previous history of bleeding that was aggressive with previous pregnancies. The baby weighed 3380 g (7 pounds 7 ounces, had Apgars of 9 and 9. The umbilical cord was allowed to pulsate for 3 minutes then was clamped x2 and cut by the baby's father. The umbilical cord had 3 vessels. Cord blood was obtained. Small perineal laceration was repaired with 3-0 Monocryl in a routine fashion using epidural analgesia as perineal laceration anesthesia. Patient tolerated this well. The placenta delivered in a [place] presentation, appeared intact and complete and was discarded per patient desire. Estimated blood loss was approximately 300 cc. Decision was made shortly after to continue with Pitocin and to add to Cytotec 400 mcg p.o. every 6 hours to facilitate increase in uterine tone and decrease likelihood of bleeding. Patient plans to breast-feed. Condition: Good
== END 2020-11-24 08:53 | disposition home or self-care (01) | DRG 807 ==
LOC: JD.OB 01:58 → OBSVTOIN 11-23 01:58 → JD.OB 11-23 01:58
PROVIDERS: ADMIT Obstetrics & Gynecology; ATTEND Obstetrics & Gynecology
PROC: 10E0XZZ Delivery of Products of Conception, External Approach (ICD-10-PCS; principal; 2020-11-23)
PROC: 10907ZC Drainage of Amniotic Fluid, Therapeutic from Products of Conception, Via Natural or Artificial Opening (ICD-10-PCS; 2020-11-23)
PROC: 0HQ9XZZ Repair Perineum Skin, External Approach (ICD-10-PCS; 2020-11-23)
PROC: 3E033VJ Introduction of Other Hormone into Peripheral Vein, Percutaneous Approach (ICD-10-PCS; 2020-11-23)
PROC: 3E0R3BZ Introduction of Anesthetic Agent into Spinal Canal, Percutaneous Approach (ICD-10-PCS; 2020-11-23)
PROC: 00HU33Z Insertion of Infusion Device into Spinal Canal, Percutaneous Approach (ICD-10-PCS; 2020-11-23)
DX: O14.14 Severe pre-eclampsia complicating childbirth (principal); Z37.1 Single stillbirth; Z3A.36 36 weeks gestation of pregnancy; O60.14X0 Preterm labor third trimester with preterm delivery third trimester, not applicable or unspecified; Z20.828 Contact with and (suspected) exposure to other viral communicable diseases; O99.62 Diseases of the digestive system complicating childbirth; K21.9 Gastro-esophageal reflux disease without esophagitis; O70.0 First degree perineal laceration during delivery
CPT/HCPCS: 01967; 36415; 51701; 51702; 59025; 59409; 81001; 82565; 82570; 83615; 83735; 84156; 84450; 84460; 84520; 84550; 85025; 86592; A9270-GY; J0171; J2590; J3010; J3475; J3490; J7120; U0002